=== PATIENT | male | born 1960 | race Caucasian/White ===

== ENCOUNTER 2020-08-14 14:20 | Inpatient (IN) | payer OTHER ==
[2020-08-14] MEDS ORDERED: morphine CARPU-JECT 2 MG/1 ML DISP.SYRIN IVPUSH ONE (14:45)
[2020-08-14] MEDS ORDERED: MAGNESIUM SULF 50% (8.12 MEQ/2 ML-1 GM VIAL) IVPB ONE (15:06)
[2020-08-14] MEDS ORDERED: MAGNESIUM SULFATE IN WATER 2 GM/50 ML IVPB IVPB ONE (15:12)
[2020-08-14 15:15] LABS: BASO % 0.7 % (0-2.0); EOS % 3.2 % (0-4.5); HEMATOCRIT 33.8 % (35.4-49); HEMOGLOBIN 11.5 GM/dL (11.7-16.9); LYMPH % 21.6 % (8-40); MCHC 34.1 g/dl (32.0-35.9); MEAN CELL VOLUME 93.8 fl (80-96); MEAN PLT VOLUME 9.5 fl (7.5-11.1); MONO % 9.8 % (3.8-10.2); NEUT % 64.7 % (42.8-82.8); PLATELET COUNT 59 K/MM3 (134-434); RDW 15.8 % (11.9-15.9); WHITE BLOOD COUNT 4.3 K/mm3 (4.0-10.0)
[2020-08-14 15:18] LABS: INR 1.4 (0.83-1.09)
[2020-08-14 15:21] LABS: ACTIVATED PTT 36.5 SECONDS (25.2-36.5)
[2020-08-14 15:30] LABS: CHLORIDE 102 mmol/L (98-107); SODIUM 133 mmol/L (136-145)
[2020-08-14 15:32] LABS: ALBUMIN 2.6 g/dl (3.4-5.0); ANION GAP 5 MMOL/L (8-16); BLOOD UREA NITROGEN 8.9 mg/dL (7-18); CALCIUM 7.8 mg/dL (8.5-10.1); CO2 26 mmol/L (21-32)
[2020-08-14 15:33] LABS: GLUCOSE,RANDOM 344 mg/dL (74-106)
[2020-08-14 15:35] LABS: SGPT/ALT 34 U/L (13-61)
[2020-08-14 15:36] LABS: CREATININE 0.9 mg/dL (0.55-1.3); SGOT/AST 45 U/L (15-37)
[2020-08-14 15:37] LABS: BILIRUBIN,TOTAL 3.1 mg/dL (0.2-1); TOT PROT 7.5 g/dl (6.4-8.2)
[2020-08-14 15:38] LABS: ALK PHOS 270 U/L (45-117)
[2020-08-14 16:03] LABS: PH,URINE 5.5 (5.0-8.0); URINE APPEARANCE CLEAR; URINE BILIRUBIN NEGATIVE (NEGATIVE); URINE COLOR YELLOW; URINE GLUCOSE (UA) 3+ (NEGATIVE); URINE KETONE NEGATIVE (NEGATIVE); URINE LEUK ESTERASE NEGATIVE (NEGATIVE); URINE NITRITE NEGATIVE (NEGATIVE); URINE PROTEIN NEGATIVE (NEGATIVE)
[2020-08-14 16:33] LABS: LACTIC ACID 2.5 mmol/L (0.4-2.0)
[2020-08-14] MEDS ORDERED: LACTATED RINGERS SOLUTION 1000 ML INFUS.BAG IV ONE (16:38)
[2020-08-14 17:42] LABS: MAGNESIUM 1.7 mg/dL (1.8-2.4)
[2020-08-14] MEDS ORDERED: ACETAMINOPHEN 325 MG TABLET (FP) PO ONE (17:52)
[2020-08-14] MEDS ORDERED: ACETAMINOPHEN 325 MG TABLET (FP) ONE (17:56)
[2020-08-14] MEDS ORDERED: VANCOMYCIN 1 GM in D5W (PRE-DOCKED) 1,000 MG/250 ML IVPB ONE (18:35)
[2020-08-14] MEDS ORDERED: PIPERACILLIN/TAZOB 3.375 GM 3.375 GM in DEXTROSE 5%-WATER - 50 ML IVPB ONE (18:37)
[2020-08-14] MEDS ORDERED: VANCOMYCIN 1 GRAM (PRE-DOCKED) 1,000 MG/250 ML BAG IVPB ONE (18:38)
[2020-08-14] MEDS ORDERED: PIPERACILLIN/TAZOB 3.375 GM 3.375 GM/50 ML BAG IVPB ONE (19:03)
[2020-08-15] MEDS ORDERED: INSULIN (NOVOLOG) ASPART 100 UNITS/ML 10ML VIAL ONE (06:06)
[2020-08-15] MEDS: INSULIN SLIDING SCALE (NOVOLOG) 1 VIAL SQ SCH ×4 (06:44→23:24)
[2020-08-15 08:33] LABS: BASO % 0.1 % (0-2.0); EOS % 0.8 % (0-4.5); HEMOGLOBIN 10.8 GM/dL (11.7-16.9); LYMPH % 13.3 % (8-40); MCH 32.3 pg (25.7-33.7); MCHC 34.7 g/dl (32.0-35.9); MEAN CELL VOLUME 92.9 fl (80-96); MEAN PLT VOLUME 9.3 fl (7.5-11.1); MONO % 9.3 % (3.8-10.2); NEUT % 76.5 % (42.8-82.8); PLATELET COUNT 41 K/MM3 (134-434); RBC 3.33 M/mm3 (4.00-5.60); RDW 15.8 % (11.9-15.9); WHITE BLOOD COUNT 6.5 K/mm3 (4.0-10.0)
[2020-08-15 08:34] LABS: INR 1.71 (0.83-1.09); PROTHROMBIN TIME (PATIENT) 20.4 SEC (9.7-13.0)
[2020-08-15 08:52] LABS: ALBUMIN 2.3 g/dl (3.4-5.0); BLOOD UREA NITROGEN 9.9 mg/dL (7-18); CALCIUM 7.5 mg/dL (8.5-10.1); MAGNESIUM 1.8 mg/dL (1.8-2.4)
[2020-08-15 08:55] LABS: CREATININE 0.8 mg/dL (0.55-1.3)
[2020-08-15 08:57] LABS: TOT PROT 6.4 g/dl (6.4-8.2)
[2020-08-15] MEDS: ENOXAPARIN NA (PORCINE) 40 MG/0.4 ML DISP.SYRIN SQ SCH (11:54)
[2020-08-15] MEDS ORDERED: DEXTROSE 5%-WATER - 50 ML IVPB ONE ×2 (12:15→16:27)
[2020-08-15] MEDS ORDERED: PIPERACILLIN/TAZOBACTAM 3.375 GM VIAL IVPB ONE ×2 (12:15→16:27)
[2020-08-15] MEDS: PIPERACILLIN/TAZOB 3.375 GM 3.375 GM in DEXTROSE 5%-WATER - 50 ML IVPB SCH ×2 (12:23→17:20)
[2020-08-15] MEDS: PANTOPRAZOLE SODIUM 40 MG VIAL IVPUSH SCH (12:24)
[2020-08-15] MEDS: ACETAMINOPHEN 1000 MG/100 ML BAG IVPB PRN ×2 (15:12→23:25)
[2020-08-16] MEDS ORDERED: PIPERACILLIN/TAZOBACTAM 3.375 GM VIAL IVPB ONE (01:45)
[2020-08-16] MEDS ORDERED: DEXTROSE 5%-WATER - 50 ML IVPB ONE (01:45)
[2020-08-16] MEDS: PIPERACILLIN/TAZOB 3.375 GM 3.375 GM in DEXTROSE 5%-WATER - 50 ML IVPB SCH (01:46)
[2020-08-16 02:09] LABS: SARS-CoV-2 NAA Not Detected (Not Detected)
[2020-08-16] MEDS ORDERED: methylPREDNISolone NA SUCC 125 MG/2 ML VIAL IVPUSH ONE (02:55)
[2020-08-16] MEDS: INSULIN SLIDING SCALE (NOVOLOG) 1 VIAL SQ SCH ×4 (06:53→21:57)
[2020-08-16 07:49] LABS: BASO % 0.1 % (0-2.0); EOS % 0.1 % (0-4.5); HEMATOCRIT 33.4 % (35.4-49); HEMOGLOBIN 11.5 GM/dL (11.7-16.9); LYMPH % 5.4 % (8-40); MCH 32.2 pg (25.7-33.7); MCHC 34.5 g/dl (32.0-35.9); MEAN CELL VOLUME 93.2 fl (80-96); MEAN PLT VOLUME 9.2 fl (7.5-11.1); MONO % 2.7 % (3.8-10.2); NEUT % 91.7 % (42.8-82.8); PLATELET COUNT 47 K/MM3 (134-434); RBC 3.58 M/mm3 (4.00-5.60); RDW 15.6 % (11.9-15.9); WHITE BLOOD COUNT 8.1 K/mm3 (4.0-10.0)
[2020-08-16 08:12] LABS: CALCIUM 7.8 mg/dL (8.5-10.1)
[2020-08-16 08:13] LABS: ALBUMIN 2.2 g/dl (3.4-5.0); BLOOD UREA NITROGEN 15.8 mg/dL (7-18)
[2020-08-16 08:16] LABS: CREATININE 0.9 mg/dL (0.55-1.3)
[2020-08-16 08:18] LABS: TOT PROT 6.3 g/dl (6.4-8.2)
[2020-08-16 09:03] LABS: ANISOCYTOSIS 0; MACROCYTOSIS 0; PLATELET ESTIMATE DECREASED
[2020-08-16] MEDS ORDERED: DEXTROSE 5%-WATER 100 ML IVPB ONE (09:38)
[2020-08-16] MEDS: NADOLOL 20 MG TABLET (FP) PO SCH (09:53)
[2020-08-16] MEDS: ENOXAPARIN NA (PORCINE) 40 MG/0.4 ML DISP.SYRIN SQ SCH (09:53)
[2020-08-16] MEDS: LACTULOSE 20 GM/30 ML UDC (FOR ORAL USE ONLY) PO SCH ×2 (09:53→21:57)
[2020-08-16] MEDS: SPIRONOLACTONE 25 MG TABLET PO SCH (09:53)
[2020-08-16] MEDS: RIFAXIMIN 550 MG TABLET PO SCH ×2 (09:53→21:59)
[2020-08-16] MEDS: PANTOPRAZOLE SODIUM 40 MG VIAL IVPUSH SCH (09:53)
[2020-08-16] MEDS: CEFTRIAXONE 2 GM in DEXTROSE 5%-WATER 2 GM/100 ML BAG IVPB SCH (09:53)
[2020-08-17] MEDS: INSULIN SLIDING SCALE (NOVOLOG) 1 VIAL SQ SCH ×4 (06:12→21:44)
[2020-08-17] MEDS ORDERED: ACETAMINOPHEN 325 MG TABLET (FP) PO ONE (08:36)
[2020-08-17] MEDS: PANTOPRAZOLE SODIUM 40 MG VIAL IVPUSH SCH (09:04)
[2020-08-17] MEDS ORDERED: DEXTROSE 5%-WATER 100 ML IVPB ONE (09:58)
[2020-08-17] MEDS: RIFAXIMIN 550 MG TABLET PO SCH ×2 (10:10→21:44)
[2020-08-17] MEDS: CEFTRIAXONE 2 GM in DEXTROSE 5%-WATER 2 GM/100 ML BAG IVPB SCH (10:10)
[2020-08-17] MEDS: NADOLOL 20 MG TABLET (FP) PO SCH (10:10)
[2020-08-17] MEDS: LACTULOSE 20 GM/30 ML UDC (FOR ORAL USE ONLY) PO SCH ×2 (10:10→21:44)
[2020-08-17] MEDS: SPIRONOLACTONE 25 MG TABLET PO SCH (10:10)
[2020-08-17] MEDS: ENOXAPARIN NA (PORCINE) 40 MG/0.4 ML DISP.SYRIN SQ SCH (10:10)
[2020-08-17] MEDS ORDERED: PHYTONADIONE 10 MG/1 ML AMP IVPB ONE (12:00)
[2020-08-17 13:25] LABS: HEMATOCRIT 33.8 % (35.4-49); HEMOGLOBIN 11.4 GM/dL (11.7-16.9); LYMPH % 7.5 % (8-40); MCH 31.6 pg (25.7-33.7); MCHC 33.6 g/dl (32.0-35.9); MEAN PLT VOLUME 9.1 fl (7.5-11.1); MONO % 6.1 % (3.8-10.2); NEUT % 86.4 % (42.8-82.8); PLATELET COUNT 64 K/MM3 (134-434); RDW 15.3 % (11.9-15.9); WHITE BLOOD COUNT 13.1 K/mm3 (4.0-10.0)
[2020-08-17 13:31] LABS: INR 1.6 (0.83-1.09); PROTHROMBIN TIME (PATIENT) 19.1 SEC (9.7-13.0)
[2020-08-17 13:52] LABS: CREATININE 0.9 mg/dL (0.55-1.3)
[2020-08-17 13:54] LABS: BILIRUBIN,TOTAL 3.4 mg/dL (0.2-1); TOT PROT 6.2 g/dl (6.4-8.2)
[2020-08-17 22:57] VITALS: BMI 24.4
[2020-08-18] MEDS ORDERED: ACETAMINOPHEN 325 MG TABLET (FP) PO ONE (06:00)
[2020-08-18] MEDS: INSULIN SLIDING SCALE (NOVOLOG) 1 VIAL SQ SCH ×4 (06:19→22:38)
[2020-08-18 08:05] LABS: BASO % 0.1 % (0-2.0); EOS % 1.1 % (0-4.5); HEMATOCRIT 33.1 % (35.4-49); HEMOGLOBIN 11.4 GM/dL (11.7-16.9); LYMPH % 19.6 % (8-40); MCH 32.2 pg (25.7-33.7); MCHC 34.3 g/dl (32.0-35.9); MEAN CELL VOLUME 93.8 fl (80-96); MEAN PLT VOLUME 8.9 fl (7.5-11.1); MONO % 10.1 % (3.8-10.2); NEUT % 69.1 % (42.8-82.8); PLATELET COUNT 61 K/MM3 (134-434); RBC 3.53 M/mm3 (4.00-5.60); RDW 15.8 % (11.9-15.9)
[2020-08-18 08:24] LABS: INR 1.45 (0.83-1.09); PROTHROMBIN TIME (PATIENT) 17.6 SEC (9.7-13.0)
[2020-08-18 08:44] LABS: ALBUMIN 2.1 g/dl (3.4-5.0); CALCIUM 7.6 mg/dL (8.5-10.1)
[2020-08-18 08:45] LABS: BLOOD UREA NITROGEN 14.9 mg/dL (7-18)
[2020-08-18 08:48] LABS: CREATININE 0.8 mg/dL (0.55-1.3)
[2020-08-18 08:49] LABS: BILIRUBIN,TOTAL 3.1 mg/dL (0.2-1); TOT PROT 6.2 g/dl (6.4-8.2)
[2020-08-18] MEDS ORDERED: DEXTROSE 5%-WATER 100 ML IVPB ONE (09:35)
[2020-08-18] MEDS: LACTULOSE 20 GM/30 ML UDC (FOR ORAL USE ONLY) PO SCH ×2 (09:56→22:37)
[2020-08-18] MEDS: NADOLOL 20 MG TABLET (FP) PO SCH (09:56)
[2020-08-18] MEDS: PANTOPRAZOLE SODIUM 40 MG VIAL IVPUSH SCH (09:56)
[2020-08-18] MEDS: SPIRONOLACTONE 25 MG TABLET PO SCH (09:56)
[2020-08-18] MEDS: CEFTRIAXONE 2 GM in DEXTROSE 5%-WATER 2 GM/100 ML BAG IVPB SCH (09:56)
[2020-08-18] MEDS: RIFAXIMIN 550 MG TABLET PO SCH ×2 (09:57→22:37)
[2020-08-18] MEDS: ENOXAPARIN NA (PORCINE) 40 MG/0.4 ML DISP.SYRIN SQ SCH (09:57)
[2020-08-18] MEDS ORDERED: SODIUM CHLORIDE 1,000 ML IV SCH (11:15)
[2020-08-18] MEDS ORDERED: ACETAMINOPHEN 325 MG TABLET (FP) PO PRN (17:58)
[2020-08-18] MEDS: ACETAMINOPHEN 325 MG TABLET (FP) PO PRN (18:02)
[2020-08-18 18:42] LABS: BF WBC & OTHER NUCLEATED CELLS 934 /mm3
[2020-08-18 20:04] LABS: BODY FLUID MACROPHAGES 37 %; BODY FLUID MESOTHELIAL 1 %; BODY FLUID MONOCYTE 2 %
[2020-08-19] MEDS: ACETAMINOPHEN 325 MG TABLET (FP) PO PRN ×2 (06:17→13:05)
[2020-08-19] MEDS: INSULIN SLIDING SCALE (NOVOLOG) 1 VIAL SQ SCH ×4 (06:25→22:08)
[2020-08-19 08:34] LABS: BASO % 0.3 % (0-2.0); EOS % 1.6 % (0-4.5); HEMATOCRIT 33.6 % (35.4-49); HEMOGLOBIN 11.5 GM/dL (11.7-16.9); LYMPH % 21.1 % (8-40); MCH 32.1 pg (25.7-33.7); MCHC 34.3 g/dl (32.0-35.9); MEAN CELL VOLUME 93.7 fl (80-96); MEAN PLT VOLUME 8.4 fl (7.5-11.1); MONO % 9.1 % (3.8-10.2); NEUT % 67.9 % (42.8-82.8); PLATELET COUNT 74 K/MM3 (134-434); RBC 3.59 M/mm3 (4.00-5.60); RDW 15.5 % (11.9-15.9); WHITE BLOOD COUNT 6.8 K/mm3 (4.0-10.0)
[2020-08-19 08:36] LABS: INR 1.44 (0.83-1.09); PROTHROMBIN TIME (PATIENT) 17.2 SEC (9.7-13.0)
[2020-08-19] MEDS ORDERED: traMADol HCL 50 MG TABLET PO PRN (08:56)
[2020-08-19 09:10] LABS: BILIRUBIN,TOTAL 4.3 mg/dL (0.2-1)
[2020-08-19 09:11] LABS: CALCIUM 7.8 mg/dL (8.5-10.1)
[2020-08-19 09:12] LABS: ALBUMIN 2.1 g/dl (3.4-5.0); BLOOD UREA NITROGEN 13.6 mg/dL (7-18)
[2020-08-19 09:15] LABS: CREATININE 0.7 mg/dL (0.55-1.3)
[2020-08-19] MEDS ORDERED: DEXTROSE 5%-WATER 100 ML IVPB ONE (10:11)
[2020-08-19] MEDS: CEFTRIAXONE 2 GM in DEXTROSE 5%-WATER 2 GM/100 ML BAG IVPB SCH (10:24)
[2020-08-19] MEDS: LACTULOSE 20 GM/30 ML UDC (FOR ORAL USE ONLY) PO SCH ×2 (10:25→22:08)
[2020-08-19] MEDS: SPIRONOLACTONE 25 MG TABLET PO SCH (10:25)
[2020-08-19] MEDS: PANTOPRAZOLE SODIUM 40 MG VIAL IVPUSH SCH (10:25)
[2020-08-19] MEDS: RIFAXIMIN 550 MG TABLET PO SCH ×2 (10:25→22:08)
[2020-08-19] MEDS: ENOXAPARIN NA (PORCINE) 40 MG/0.4 ML DISP.SYRIN SQ SCH (10:25)
[2020-08-19] MEDS: NADOLOL 20 MG TABLET (FP) PO SCH (10:26)
[2020-08-19 16:13] LABS: HEP B CORE AB, TOT Negative (Negative)
[2020-08-20] MEDS: ACETAMINOPHEN 325 MG TABLET (FP) PO PRN ×2 (05:36→11:31)
[2020-08-20 06:51] VITALS: BP 114/54; PULSE 66; TEMP 99.1
[2020-08-20] MEDS: INSULIN SLIDING SCALE (NOVOLOG) 1 VIAL SQ SCH ×2 (06:57→10:59)
[2020-08-20 08:28] LABS: BASO % 0.4 % (0-2.0); EOS % 1.8 % (0-4.5); HEMATOCRIT 33.4 % (35.4-49); HEMOGLOBIN 11.5 GM/dL (11.7-16.9); MCH 32.2 pg (25.7-33.7); MCHC 34.4 g/dl (32.0-35.9); MEAN CELL VOLUME 93.6 fl (80-96); MEAN PLT VOLUME 8.8 fl (7.5-11.1); MONO % 9.9 % (3.8-10.2); NEUT % 69.9 % (42.8-82.8); PLATELET COUNT 74 K/MM3 (134-434); RBC 3.57 M/mm3 (4.00-5.60); RDW 15.4 % (11.9-15.9); WHITE BLOOD COUNT 6.7 K/mm3 (4.0-10.0)
[2020-08-20 08:34] LABS: INR 1.49 (0.83-1.09); PROTHROMBIN TIME (PATIENT) 18.1 SEC (9.7-13.0)
[2020-08-20 09:13] LABS: CALCIUM 7.7 mg/dL (8.5-10.1)
[2020-08-20 09:14] LABS: ALBUMIN 2.1 g/dl (3.4-5.0); BLOOD UREA NITROGEN 13.2 mg/dL (7-18)
[2020-08-20 09:16] LABS: CREATININE 0.6 mg/dL (0.55-1.3)
[2020-08-20] MEDS ORDERED: DEXTROSE 5%-WATER 100 ML IVPB ONE (10:28)
[2020-08-20] MEDS: LACTULOSE 20 GM/30 ML UDC (FOR ORAL USE ONLY) PO SCH (10:40)
[2020-08-20] MEDS: PANTOPRAZOLE SODIUM 40 MG VIAL IVPUSH SCH (10:40)
[2020-08-20] MEDS: CEFTRIAXONE 2 GM in DEXTROSE 5%-WATER 2 GM/100 ML BAG IVPB SCH (10:46)
[2020-08-20] MEDS: ENOXAPARIN NA (PORCINE) 40 MG/0.4 ML DISP.SYRIN SQ SCH (10:49)
[2020-08-20] MEDS: RIFAXIMIN 550 MG TABLET PO SCH (10:49)
[2020-08-20] MEDS: NADOLOL 20 MG TABLET (FP) PO SCH (10:49)
[2020-08-20] MEDS: SPIRONOLACTONE 25 MG TABLET PO SCH (10:50)
[2020-08-20] MEDS ORDERED: INSULIN (NOVOLOG) ASPART 100 UNITS/ML 10ML VIAL ONE (10:57)
[2020-08-20 13:06] LABS: BODY FLUID ALBUMIN 1.9 g/dL (Not Estab.)
[2020-08-20] MEDS ORDERED: SODIUM CHLORIDE 1 GM TABLET PO SCH (14:00)
== END 2020-08-20 14:24 | disposition short-term general hospital (02) | DRG 186 ==
LOC: JER 14:20 → JERBED 21:44 → J6S 08-15 01:45
PROVIDERS: ADMIT Internal Medicine; ATTEND Family Medicine
PROC: 0W9B30Z Drainage of Left Pleural Cavity with Drainage Device, Percutaneous Approach (ICD-10-PCS; principal; 2020-08-18)
DX: J90 Pleural effusion, not elsewhere classified (principal); J18.9 Pneumonia, unspecified organism; J93.9 Pneumothorax, unspecified; E87.2 Acidosis; K76.6 Portal hypertension; E87.1 Hypo-osmolality and hyponatremia; E46 Unspecified protein-calorie malnutrition; K70.30 Alcoholic cirrhosis of liver without ascites; Z76.82 Awaiting organ transplant status; D64.9 Anemia, unspecified; R16.1 Splenomegaly, not elsewhere classified; E88.09 Other disorders of plasma-protein metabolism, not elsewhere classified; E11.65 Type 2 diabetes mellitus with hyperglycemia; F10.10 Alcohol abuse, uncomplicated; I86.4 Gastric varices; K21.9 Gastro-esophageal reflux disease without esophagitis; K72.90 Hepatic failure, unspecified without coma; Z86.16 Personal history of COVID-19; L27.0 Generalized skin eruption due to drugs and medicaments taken internally; T36.0X5A Adverse effect of penicillins, initial encounter; Z87.891 Personal history of nicotine dependence; D69.6 Thrombocytopenia, unspecified; E83.42 Hypomagnesemia
CPT/HCPCS: 32557; 36415; 36430; 71045-TC-FY; 71046-TC-FY; 71250-TC; 74176-TC; 76098-TC-FY; 76775-TC; 80053; 81003; 82042; 82105; 82140; 82150; 82436; 82465; 82550; 82553; 82728; 82945; 82962; 83036; 83540; 83550; 83605; 83615; 83735; 83930; 83935; 83986; 84133; 84155; 84157; 84165; 84300; 84478; 84484; 85025; 85610; 85730; 86038; 86140; 86704; 86706; 86707; 86708; 86709; 86803; 86850; 86900; 86901; 87040; 87070; 87075; 87077; 87086; 87102; 87116; 87205; 87206; 87210; 87340; 87899; 93005; 93010; 99285-25; C1729; C1769; C9803; J0131; P9034; U0003; U0005